=== PATIENT | female | born 1960 | race American Indian/Alaskan Native ===

== ENCOUNTER 2016-04-01 13:08 | Outpatient (CLI) | payer OTHER ==
--- NOTE | 2016-04-01 13:37 | XRay Report ---
LEFT FOOT: The bony architecture is intact. Bony alignment is normal. No soft tissue abnormalities are seen. The joint spaces appear preserved. IMPRESSION: Normal left foot.
== END 2016-04-01 13:09 | disposition home or self-care (01) ==
LOC: SPVIMAG 13:08
PROVIDERS: ATTEND Family Medicine
DX: M79.675 Pain in left toe(s) (principal)